=== PATIENT | female | born 1955 | race Caucasian/White ===

== ENCOUNTER 2017-05-16 00:08 | Emergency (ER) | payer OTHER ==
[~2017-05-16] VITALS: Ht 157.5 cm; Wt 62.1 kg
[2017-05-16] MEDS ORDERED: BUPR300T54 (02:45)
[2017-05-16] MEDS ORDERED: ONDANSETRON ODT 4 MG TAB.RAPDIS SL ONE (03:15)
[2017-05-16] MEDS ORDERED: ONDANSETRON ODT 4 MG TAB.RAPDIS ONE (03:26)
--- NOTE | 2017-05-16 05:00 | NUR ---
Patient discharged to home in stable conditon. Written and verbal after care instructions given. Patient verbalizes understanding of instructions. Ambulated w/ steady gait. Took all belongings
[2017-05-16 06:34] VITALS: BP 138/67
== END 2017-05-16 05:00 | disposition home or self-care (01) ==
LOC: ER 00:10
DX: R04.2 Hemoptysis (principal)
CPT/HCPCS: 71045; 99283; A4663; Q0162

== ENCOUNTER 2020-10-25 11:34 | Emergency (ER) | payer MEDICAID, OTHER ==
[~2020-10-25] VITALS: Ht 157.5 cm; Wt 68.0 kg
[~2020-10-25 11:34] MED LIST: BUPR-319
--- NOTE | 2020-10-25 11:50 | NUR ---
Dr Adams at the bedside for MSE.
[2020-10-25] MEDS ORDERED: ACETAMINOPHEN ES 500 MG TABLET PO ONE (12:00)
[2020-10-25] MEDS ORDERED: TDAP DIPH,PERTUSS,TET VAC/PF 0.5 ML DISP.SYRIN IM ONE ×2 (12:00→12:02)
[2020-10-25] MEDS ORDERED: ACETAMINOPHEN ES 500 MG TABLET ONE (12:02)
[2020-10-25] MEDS ORDERED: NEOMY/BACITRA/POLYMYXIN B OINT UD PACKET TP ONE ×2 (12:15→12:21)
--- NOTE | 2020-10-25 12:19 | NUR ---
Pt out of ER for CT.
--- NOTE | 2020-10-25 12:30 | NUR ---
Pt back from Ct, resting in bed.
[2020-10-25 13:05] VITALS: BP 123/61
--- NOTE | 2020-10-25 13:15 | NUR ---
Patient discharged to home in stable condition. Written and verbal after care instructions given. Patient verbalizes understanding of instructions. Stressed follow up or return to ER for worsening s/s.
== END 2020-10-25 13:15 | disposition home or self-care (01) ==
LOC: ER 11:34
DX: S09.90XA Unspecified injury of head, initial encounter (principal); S16.1XXA Strain of muscle, fascia and tendon at neck level, initial encounter; S01.81XA Laceration without foreign body of other part of head, initial encounter; V48.4XXA Person boarding or alighting a car injured in noncollision transport accident, initial encounter; Y92.89 Other specified places as the place of occurrence of the external cause; M50.322 Other cervical disc degeneration at C5-C6 level
CPT/HCPCS: 70450; 72125; 90715; A4663; A9150